=== PATIENT | male | born 1995 | race African-American/Black ===

== ENCOUNTER 2019-03-31 17:25 | Emergency (ER) | payer SELFPAY ==
[~2019-03-31] VITALS: Ht 177.8 cm; Wt 70.3 kg
--- NOTE | 2019-03-31 17:47 | NUR ---
MARBIN THURMAN AT BEDSIDE FOR MSE.
[2019-03-31 18:02] VITALS: BP 110/68
--- NOTE | 2019-03-31 18:03 | NUR ---
DCPatient discharged to home in stable conditon. Written and verbal after care instructions given. Patient verbalizes understanding of instructions.
== END 2019-03-31 18:03 | disposition home or self-care (01) ==
LOC: ER 17:25
DX: H10.9 Unspecified conjunctivitis (principal); M20.012 Mallet finger of left finger(s)
CPT/HCPCS: 73140; A4663

== ENCOUNTER 2024-01-02 14:12 | Emergency (ER) | payer SELFPAY ==
[~2024-01-02] VITALS: Ht 177.8 cm; Wt 95.3 kg
[2024-01-02] MEDS ORDERED: KETOROLAC TROMETHAMINE 60 MG INJ IM ONE (14:27)
[2024-01-02] MEDS: KETOROLAC TROMETHAMINE 60 MG INJ IM ONE (14:32)
[2024-01-02] MEDS ORDERED: LIDOCAINE 2%-EPI 1:100,000 20 ML VIAL ONE (14:50)
[2024-01-02] MEDS: LIDOCAINE 2%-EPI 1:100,000 20 ML VIAL IJ ONE (15:05)
[2024-01-02] MEDS ORDERED: ONDA4TAB11 PO (16:19)
[2024-01-02] MEDS ORDERED: TRAM50TA2 PO (16:19)
[2024-01-02 17:05] VITALS: BP 122/80; TEMP 97; O2SAT 99
== END 2024-01-02 17:05 | disposition home or self-care (01) ==
LOC: ER 14:13
DX: S82.51XA Displaced fracture of medial malleolus of right tibia, initial encounter for closed fracture (principal); Z79.899 Other long term (current) drug therapy; X50.1XXA Overexertion from prolonged static or awkward postures, initial encounter; Y93.89 Activity, other specified; Y92.89 Other specified places as the place of occurrence of the external cause; Y99.8 Other external cause status
CPT/HCPCS: 29515; 73600; 96372; 99283; J1885; A4606; A4663